=== PATIENT | male | born 1935 | race Caucasian/White ===

== ENCOUNTER 2022-03-09 10:13 | Inpatient (IN) | payer MEDICARE ==
[~2022-03-09 10:13] MED LIST: Rocuronium Bromide 10 MG/ML (10ML VIAL) ONE; Succinylcholine 200 MG/10 ml SYRINGE FS ONE
[2022-03-09] MEDS ORDERED: Lidocaine 4% Topical Sol 50 ML BOT ONE (10:50)
[2022-03-09 10:52] LABS: #Basophils 0.1 10x3/uL (0.0-0.2); #Eosinphils 0.9 10x3/uL (0.0-0.5); #Monocytes 0.8 10x3/uL (0.0-1.1); #Neutrophils 7.1 10x3/uL (1.5-8.4); %Basophils 0.8 % (0.0-2.0); %Eosinophils 7.6 % (0.0-6.0); %Lymphocytes 23.8 % (18.0-47.0); %Monocytes 6.9 % (0.0-10.0); %Neutrophils 60.7 % (40.0-75.0); Mean Corpuscular HGB CONC 32.5 g/dL (32.0-36.0); Mean Corpuscular Hemoglobin 32.8 pg (27.0-33.0); Mean Corpuscular Volume 100.9 fl (81.2-95.1); Mean Platelet Volume 11.5 fl (7.4-10.4); Platelet Count 324 10x3/uL (150-450); RBC Distribution Width 11.6 % (11.5-14.5); Red Blood Cell (RBC) Count 4.58 10x6/uL (4.32-5.72); White Blood Cell (WBC) Count 11.6 10x3/uL (3.5-10.5)
[2022-03-09] MEDS ORDERED: Diltiazem 125 MG/25 ML ONE (10:59)
[2022-03-09 11:10] LABS: ALT (SGPT) 7 U/L (8-55); AST (SGOT) 12 U/L (5-34); Albumin 3.8 g/dL (3.4-4.8); Alkaline Phosphatase 97 U/L (40-110); Anion Gap 12 mmol/L (10-20); BUN (Urea Nitrogen) 13 mg/dL (8.4-25.7); Bilirubin, Total 2.6 mg/dL (0.2-1.2); Calc. Creatinine Clearance 0 mL/min (70-130); Calcium 9.2 mg/dL (7.8-10.44); Carbon Dioxide 28 mmol/L (23-31); Chloride 102 mmol/L (98-107); Estimated GFR 81; Globulin 3.1 g/dL (2.4-3.5); Glucose 140 mg/dL (83-110); Potassium 3.8 mmol/L (3.5-5.1); Protein, Total 6.9 g/dL (5.8-8.1); Sodium 138 mmol/L (136-145)
[2022-03-09] MEDS ORDERED: cefTRIAXone\\ROCEPHIN 1 GM VIAL ONE (11:35)
[2022-03-09] MEDS ORDERED: cefTRIAXone\\ROCEPHIN 2 GM VIAL ONE (11:36)
[2022-03-09] MEDS ORDERED: Azithromycin 500 MG VIAL ONE (12:24)
[2022-03-09 12:52] LABS: SARS-CoV-2 NAA Rapid Test Not Detected (NotDetected)
[2022-03-09 13:07] VITALS: BMI 30.8
[2022-03-09 13:47] LABS: Magnesium 1.9 mg/dL (1.6-2.6); Phosphorus 2.6 mg/dL (2.3-4.7)
[2022-03-09 14:06] LABS: Troponin I Less than 0.010 ng/mL (< 0.028)
[2022-03-09 14:21] LABS: Free T4 (Free Thyroxine) 1.11 ng/dL (0.70-1.48); Thyroid Stimulating Hormone 2.5396 uIU/mL (0.35-4.94)
[2022-03-09] MEDS: Doxycycline 100 MG in Sodium Chloride 0.9% 100 ML IVPB SCH (14:40)
[2022-03-09] MEDS: metroNIDAZOLE 500 MG in Premix Bag 1 BAG IVPB SCH ×2 (14:40→22:06)
[2022-03-09] MEDS ORDERED: Fentanyl BOLUS 250 ML IVPB PRN (16:00)
[2022-03-09] MEDS ORDERED: Propofol BOLUS 1,000 MG/100 ML VIAL IV PRN (16:00)
[2022-03-09] MEDS ORDERED: fentaNYL Citrate-0.9 % NaCl/PF 100 ML IVPB SCH (16:00)
[2022-03-09] MEDS ORDERED: Propofol 1,000 MG/100 ML VIAL IV ONE (16:00)
[2022-03-09] MEDS ORDERED: Morphine 2 MG/ML VIAL SLOW IVP PRN (16:00)
[2022-03-09] MEDS ORDERED: Ventilator Sedation Protocol 1 EACH FS SCH (16:00)
[2022-03-09] MEDS ORDERED: Propofol 1,000 MG/100 ML VIAL IV PRN (16:00)
[2022-03-09] MEDS ORDERED: Lorazepam 2 MG/ML VIAL SLOW IVP PRN (16:00)
[2022-03-09] MEDS ORDERED: DISCONTINUE PREVIOUS NARCOTIC PAIN MEDICATIONS AND BENZODIAZEPINES FS SCH (16:00)
[2022-03-09] MEDS ORDERED: Rocuronium Bromide 10 MG/ML (10ML VIAL) IVP SCH (16:30)
[2022-03-09 16:57] LABS: Troponin I Less than 0.010 ng/mL (< 0.028)
[2022-03-09] MEDS: Cefepime 2 GM in Sodium Chloride 0.9% 100 ML IVPB SCH (17:13)
[2022-03-09 17:20] LABS: Bilirubin Neg (Negative); Blood, Urine Negative (Negative); Clarity Clear (Clear); Glucose, Urine (Dipstick) Normal (Negative); Ketone, Urine Negative (Negative); Leukocyte Negative (Negative); Nitrite Negative (Negative); Protein, Urine (Dipstick) Negative (Neg-Trace); Specific Gravity, Urine 1.015 (1.005-1.030); Urobilinogen Normal mg/dL (Less than 2)
[2022-03-09 17:21] LABS: Urine Culture Reflex No No
[2022-03-09 17:29] LABS: Bacteria/HPF None Seen HPF (None Seen); RBC/HPF 0-3 HPF (0-3); Squamous Epithelial 0-3 HPF (0-3); WBC/HPF 0-3 HPF (0-3)
[2022-03-09] MEDS ORDERED: hydrALAZINE 20 MG/ML VIAL SLOW IVP PRN (17:33)
[2022-03-09 19:56] LABS: Anion Gap 17 mmol/L (10-20); BUN (Urea Nitrogen) 13 mg/dL (8.4-25.7); Calc. Creatinine Clearance 99 mL/min (70-130); Carbon Dioxide 24 mmol/L (23-31); Chloride 104 mmol/L (98-107); Estimated GFR 85; Glucose 118 mg/dL (83-110); Potassium 3.8 mmol/L (3.5-5.1); Sodium 141 mmol/L (136-145)
[2022-03-09] MEDS: Diltiazem 125 MG, Admixture Fee 1 EACH in Sodium Chloride 0.9% 100 ML IVPB SCH (20:27)
[2022-03-09] MEDS: Famotidine 20 MG TAB PO SCH (22:06)
[2022-03-10] MEDS: Doxycycline 100 MG in Sodium Chloride 0.9% 100 ML IVPB SCH ×2 (01:43→14:46)
[2022-03-10] MEDS ORDERED: Sodium Chloride 0.9% 500 ML IVPB SCH (03:00)
[2022-03-10] MEDS ORDERED: Digoxin 0.5 MG/2 ML AMP SLOW IVP SCH (03:00)
[2022-03-10] MEDS: Cefepime 2 GM in Sodium Chloride 0.9% 100 ML IVPB SCH ×2 (03:49→16:02)
[2022-03-10 05:01] LABS: ALT (SGPT) 6 U/L (8-55); AST (SGOT) 10 U/L (5-34); Albumin 2.8 g/dL (3.4-4.8); Alkaline Phosphatase 63 U/L (40-110); Anion Gap 14 mmol/L (10-20); BUN (Urea Nitrogen) 18 mg/dL (8.4-25.7); Calc. Creatinine Clearance 80 mL/min (70-130); Calcium 8.4 mg/dL (7.8-10.44); Carbon Dioxide 20 mmol/L (23-31); Chloride 108 mmol/L (98-107); Estimated GFR 73; Globulin 2.5 g/dL (2.4-3.5); Glucose 138 mg/dL (83-110); Potassium 4.2 mmol/L (3.5-5.1); Protein, Total 5.3 g/dL (5.8-8.1); Sodium 138 mmol/L (136-145)
[2022-03-10] MEDS: metroNIDAZOLE 500 MG in Premix Bag 1 BAG IVPB SCH ×3 (05:49→20:38)
[2022-03-10 05:56] LABS: Hemoglobin 11.9 g/dL (13.5-17.5); Mean Corpuscular HGB CONC 33.1 g/dL (32.0-36.0); Mean Corpuscular Hemoglobin 32.4 pg (27.0-33.0); Mean Corpuscular Volume 97.8 fl (81.2-95.1); Platelet Count 190 10x3/uL (150-450); RBC Distribution Width 11.9 % (11.5-14.5); Red Blood Cell (RBC) Count 3.67 10x6/uL (4.32-5.72); White Blood Cell (WBC) Count 30.3 10x3/uL (3.5-10.5)
[2022-03-10 06:32] LABS: CO2 Tension 37.8 mmHg (35.0-45.0); pH, Arterial 7.44 (7.35-7.45)
[2022-03-10 06:33] LABS: Actual Bicarbonate (HCO3a) 25.3 mEq/L (22-28); Base Excess (BEa) 1.3 mEq/L (-2.0 to +3.0); Carboxyhemoglobin (COHb) 0.2 gm% (0.0-3.0); Hemoglobin (Hb) 12.5 g/dL (14.0-18.0); O2 Tension (PaO2), arterial 90.4 mmHg (> 60.0)
[2022-03-10 06:34] LABS: Potassium - ABG Lab 4.1 mmol/L (3.70-5.30)
[2022-03-10 06:35] LABS: Calcium, Ionized (arterial) 1.14 mmol/L (1.12-1.30)
[2022-03-10 06:36] LABS: Puncture Site RRA
[2022-03-10 06:42] LABS: MDiff Complete? YES
[2022-03-10 06:44] LABS: Band 9 % (5-11); Lymphocytes 1 % (21-51); Monocytes 4 % (0-10); Neutrophil 86 % (42-75)
[2022-03-10 06:46] LABS: Diff Comment (RBC Morph SCRN) NORMAL; Platelet Morphology Comment Appears Decreased
[2022-03-10] MEDS ORDERED: DC Sedation Protocol FS ONE (07:34)
[2022-03-10] MEDS: Famotidine 20 MG TAB PO SCH ×2 (08:03→20:38)
[2022-03-10] MEDS ORDERED: Rivaroxaban 2.5 MG TAB PO SCH (11:00)
[2022-03-10] MEDS: Rivaroxaban 2.5 MG TAB PO SCH (20:38)
[2022-03-11] MEDS: Doxycycline 100 MG in Sodium Chloride 0.9% 100 ML IVPB SCH ×2 (04:30→13:52)
[2022-03-11] MEDS: Cefepime 2 GM in Sodium Chloride 0.9% 100 ML IVPB SCH ×2 (04:31→16:17)
[2022-03-11 05:00] LABS: Anion Gap 15 mmol/L (10-20); BUN (Urea Nitrogen) 19 mg/dL (8.4-25.7); Calc. Creatinine Clearance 101 mL/min (70-130); Calcium 8.6 mg/dL (7.8-10.44); Carbon Dioxide 22 mmol/L (23-31); Chloride 107 mmol/L (98-107); Estimated GFR 86; Glucose 95 mg/dL (83-110); Potassium 3.8 mmol/L (3.5-5.1); Sodium 140 mmol/L (136-145)
[2022-03-11] MEDS: metroNIDAZOLE 500 MG in Premix Bag 1 BAG IVPB SCH ×3 (06:10→21:55)
[2022-03-11] MEDS: Famotidine 20 MG TAB PO SCH ×3 (08:12→22:29)
[2022-03-11] MEDS: Rivaroxaban 2.5 MG TAB PO SCH (08:12)
[2022-03-11] MEDS: Diltiazem 125 MG, Admixture Fee 1 EACH in Sodium Chloride 0.9% 100 ML IVPB SCH ×2 (12:58→21:54)
[2022-03-11] MEDS ORDERED: Midazolam HCl 5 mg/5 ml Vial SLOW IVP SCH (19:00)
[2022-03-11] MEDS: Apixaban 5 MG TAB PO SCH ×2 (21:54→22:17)
[2022-03-11] MEDS: Atorvastatin Calcium 20 MG TAB PO SCH ×2 (21:54→22:30)
[2022-03-11] MEDS: Nystatin Cream 15 GM TUBE TOP SCH (21:55)
[2022-03-12] MEDS: Doxycycline 100 MG in Sodium Chloride 0.9% 100 ML IVPB SCH (01:57)
[2022-03-12] MEDS: Cefepime 2 GM in Sodium Chloride 0.9% 100 ML IVPB SCH ×2 (03:55→16:29)
[2022-03-12 04:47] LABS: Anion Gap 14 mmol/L (10-20); BUN (Urea Nitrogen) 18 mg/dL (8.4-25.7); Calc. Creatinine Clearance 105 mL/min (70-130); Calcium 8.6 mg/dL (7.8-10.44); Carbon Dioxide 23 mmol/L (23-31); Chloride 109 mmol/L (98-107); Estimated GFR 87; Glucose 92 mg/dL (83-110); Potassium 3.5 mmol/L (3.5-5.1); Sodium 142 mmol/L (136-145)
[2022-03-12] MEDS: metroNIDAZOLE 500 MG in Premix Bag 1 BAG IVPB SCH ×3 (06:41→22:16)
[2022-03-12] MEDS: Dextrose 5 %-0.45 % NaCl 1,000 ML IV SCH ×2 (08:45→20:57)
[2022-03-12] MEDS: Nystatin Cream 15 GM TUBE TOP SCH ×2 (08:46→21:21)
[2022-03-12] MEDS: Pantoprazole 40 MG VIAL IVP SCH (08:58)
[2022-03-12] MEDS: Diltiazem 125 MG, Admixture Fee 1 EACH in Sodium Chloride 0.9% 100 ML IVPB SCH ×2 (09:07→21:20)
[2022-03-12] MEDS ORDERED: Potassium Chloride 10 MEQ in Premix Bag 1 BAG IVPB SCH (11:00)
[2022-03-12] MEDS: Apixaban 5 MG TAB PO SCH (11:50)
[2022-03-12] MEDS: Tamsulosin HCl 0.4 MG CAP PO SCH (11:50)
[2022-03-12 12:29] LABS: Magnesium 1.7 mg/dL (1.6-2.6)
[2022-03-12] MEDS ORDERED: Magnesium 2 GM/50 ML(in water) 2 GM in Premix Bag 1 BAG IVPB SCH (12:45)
[2022-03-12] MEDS: Enoxaparin Sodium 120 MG/0.8 ML SYRINGE SC SCH (20:57)
[2022-03-12] MEDS: Atorvastatin Calcium 20 MG TAB PO SCH (21:20)
[2022-03-13] MEDS: Cefepime 2 GM in Sodium Chloride 0.9% 100 ML IVPB SCH ×2 (03:58→16:14)
[2022-03-13] MEDS ORDERED: Lorazepam 2 MG/ML VIAL SLOW IVP SCH (04:00)
[2022-03-13 05:17] LABS: Anion Gap 11 mmol/L (10-20); BUN (Urea Nitrogen) 16 mg/dL (8.4-25.7); Calc. Creatinine Clearance 108 mL/min (70-130); Calcium 8.1 mg/dL (7.8-10.44); Carbon Dioxide 24 mmol/L (23-31); Chloride 108 mmol/L (98-107); Estimated GFR 88; Glucose 230 mg/dL (83-110); Potassium 3.1 mmol/L (3.5-5.1); Sodium 140 mmol/L (136-145)
[2022-03-13] MEDS: Potassium Chloride 20 MEQ in Premix Bag 1 BAG IVPB SCH ×2 (05:47→07:59)
[2022-03-13] MEDS: metroNIDAZOLE 500 MG in Premix Bag 1 BAG IVPB SCH ×3 (05:50→21:34)
[2022-03-13] MEDS: Diltiazem 125 MG, Admixture Fee 1 EACH in Sodium Chloride 0.9% 100 ML IVPB SCH ×2 (08:00→18:20)
[2022-03-13] MEDS: Nystatin Cream 15 GM TUBE TOP SCH ×3 (08:07→22:48)
[2022-03-13] MEDS: Tamsulosin HCl 0.4 MG CAP PO SCH (08:07)
[2022-03-13] MEDS ORDERED: Pantoprazole 40 MG VIAL ONE (08:13)
[2022-03-13] MEDS: Enoxaparin Sodium 120 MG/0.8 ML SYRINGE SC SCH ×2 (08:13→20:17)
[2022-03-13] MEDS: Pantoprazole 40 MG VIAL IVP SCH (08:13)
[2022-03-13] MEDS ORDERED: HumaLOG 300 UNITS/3 ML VIAL SC PRN (08:16)
[2022-03-13] MEDS ORDERED: Dextrose 5% in Water 1,000 ML IV PRN (08:16)
[2022-03-13] MEDS ORDERED: Dextrose 50% Abboject 50 ML SYRINGE SLOW IVP PRN (08:16)
[2022-03-13 12:40] LABS: Potassium 3.5 mmol/L (3.5-5.1)
[2022-03-13] MEDS: Dextrose 5 %-0.45 % NaCl 1,000 ML IV SCH (13:28)
[2022-03-13] MEDS ORDERED: Midazolam HCl 2 mg/2 ml Vial SLOW IVP PRN (15:40)
[2022-03-13] MEDS: Atorvastatin Calcium 20 MG TAB PO SCH (20:17)
[2022-03-14] MEDS: Cefepime 2 GM in Sodium Chloride 0.9% 100 ML IVPB SCH ×2 (03:41→16:11)
[2022-03-14] MEDS: Dextrose 5 %-0.45 % NaCl 1,000 ML IV SCH ×2 (03:51→16:50)
[2022-03-14 03:54] LABS: #Basophils 0.1 10x3/uL (0.0-0.2); #Eosinphils 0.8 10x3/uL (0.0-0.5); #Neutrophils 8.5 10x3/uL (1.5-8.4); %Basophils 0.6 % (0.0-2.0); %Eosinophils 6.2 % (0.0-6.0); %Lymphocytes 15.2 % (18.0-47.0); %Neutrophils 69.4 % (40.0-75.0); Hemoglobin 11.4 g/dL (13.5-17.5); Mean Corpuscular HGB CONC 33.2 g/dL (32.0-36.0); Mean Corpuscular Volume 99.4 fl (81.2-95.1); Mean Platelet Volume 11.7 fl (7.4-10.4); Platelet Count 252 10x3/uL (150-450); RBC Distribution Width 11.9 % (11.5-14.5); Red Blood Cell (RBC) Count 3.45 10x6/uL (4.32-5.72); White Blood Cell (WBC) Count 12.3 10x3/uL (3.5-10.5)
[2022-03-14 04:12] LABS: Anion Gap 9 mmol/L (10-20); BUN (Urea Nitrogen) 12 mg/dL (8.4-25.7); Calc. Creatinine Clearance 125 mL/min (70-130); Calcium 8.3 mg/dL (7.8-10.44); Carbon Dioxide 25 mmol/L (23-31); Chloride 108 mmol/L (98-107); Estimated GFR 92; Glucose 123 mg/dL (83-110); Magnesium 1.8 mg/dL (1.6-2.6); Potassium 3.2 mmol/L (3.5-5.1); Sodium 139 mmol/L (136-145)
[2022-03-14] MEDS: metroNIDAZOLE 500 MG in Premix Bag 1 BAG IVPB SCH ×3 (05:30→21:07)
[2022-03-14] MEDS ORDERED: Potassium Chloride 20 MEQ in Premix Bag 1 BAG IVPB ONE (05:30)
[2022-03-14] MEDS: Pantoprazole 40 MG VIAL IVP SCH (08:28)
[2022-03-14] MEDS: Nystatin Cream 15 GM TUBE TOP SCH ×2 (08:39→21:31)
[2022-03-14] MEDS: Tamsulosin HCl 0.4 MG CAP PO SCH (09:38)
[2022-03-14] MEDS: Diltiazem 125 MG, Admixture Fee 1 EACH in Sodium Chloride 0.9% 100 ML IVPB SCH (12:11)
[2022-03-14] MEDS ORDERED: PROPOFOL 20 ML ONE (14:59)
[2022-03-14] MEDS ORDERED: Ketamine 50 MG/ML (10ML VIAL) ONE (15:10)
[2022-03-14] MEDS: Atorvastatin Calcium 20 MG TAB PO SCH (21:06)
[2022-03-15 04:03] LABS: Anion Gap 10 mmol/L (10-20); BUN (Urea Nitrogen) 9 mg/dL (8.4-25.7); Calc. Creatinine Clearance 123 mL/min (70-130); Calcium 8.2 mg/dL (7.8-10.44); Carbon Dioxide 26 mmol/L (23-31); Chloride 108 mmol/L (98-107); Estimated GFR 91; Glucose 130 mg/dL (83-110); Potassium 3.3 mmol/L (3.5-5.1); Sodium 141 mmol/L (136-145)
[2022-03-15] MEDS: Cefepime 2 GM in Sodium Chloride 0.9% 100 ML IVPB SCH ×2 (04:24→15:01)
[2022-03-15] MEDS ORDERED: Electrolyte Replacement Protocol FS PRN (04:47)
[2022-03-15] MEDS ORDERED: Magnesium 2 GM/50 ML(in water) 2 GM in Premix Bag 1 BAG IVPB SCH (05:00)
[2022-03-15] MEDS: Dextrose 5 %-0.45 % NaCl 1,000 ML IV SCH (05:15)
[2022-03-15] MEDS: Potassium Chloride 20 MEQ in Premix Bag 1 BAG IVPB SCH ×2 (05:15→08:26)
[2022-03-15] MEDS: metroNIDAZOLE 500 MG in Premix Bag 1 BAG IVPB SCH ×3 (06:12→21:34)
[2022-03-15] MEDS: Nystatin Cream 15 GM TUBE TOP SCH ×2 (08:27→20:35)
[2022-03-15] MEDS: Tamsulosin HCl 0.4 MG CAP PO SCH (08:27)
[2022-03-15] MEDS: Enoxaparin Sodium 120 MG/0.8 ML SYRINGE SC SCH (08:27)
[2022-03-15] MEDS: Pantoprazole 40 MG VIAL IVP SCH (08:27)
[2022-03-15] MEDS: Diltiazem 125 MG, Admixture Fee 1 EACH in Sodium Chloride 0.9% 100 ML IVPB SCH (10:38)
[2022-03-15] MEDS: Scopolamine 1.5 mg/72 hour Patch TD SCH (12:05)
[2022-03-15] MEDS ORDERED: Metoprolol Tartrate 50 MG TAB PO SCH (13:00)
[2022-03-15] MEDS: Metoprolol Tartrate 50 MG TAB PO SCH (20:35)
[2022-03-15] MEDS: Apixaban 5 MG TAB PO SCH (20:35)
[2022-03-15] MEDS: Atorvastatin Calcium 20 MG TAB PER TUBE SCH (20:35)
[2022-03-16] MEDS: Cefepime 2 GM in Sodium Chloride 0.9% 100 ML IVPB SCH ×2 (04:27→16:56)
[2022-03-16 04:31] LABS: Anion Gap 12 mmol/L (10-20); BUN (Urea Nitrogen) 11 mg/dL (8.4-25.7); Calc. Creatinine Clearance 114 mL/min (70-130); Calcium 8.4 mg/dL (7.8-10.44); Carbon Dioxide 26 mmol/L (23-31); Chloride 108 mmol/L (98-107); Estimated GFR 89; Glucose 105 mg/dL (83-110); Potassium 3.6 mmol/L (3.5-5.1); Sodium 142 mmol/L (136-145)
[2022-03-16] MEDS: Apixaban 5 MG TAB PO SCH ×2 (08:18→20:20)
[2022-03-16] MEDS: Metoprolol Tartrate 50 MG TAB PO SCH ×2 (08:18→20:20)
[2022-03-16] MEDS: metroNIDAZOLE 500 MG in Premix Bag 1 BAG IVPB SCH ×3 (08:18→22:09)
[2022-03-16] MEDS: Tamsulosin HCl 0.4 MG CAP PO SCH (08:18)
[2022-03-16] MEDS: Nystatin Cream 15 GM TUBE TOP SCH ×2 (08:20→20:20)
[2022-03-16] MEDS: Lansoprazole 3 MG/ML ORAL SUSPENSION PER TUBE SCH (08:20)
[2022-03-16] MEDS ORDERED: Potassium Chloride 20 MEQ TAB PO SCH (09:45)
[2022-03-16] MEDS: Atorvastatin Calcium 20 MG TAB PER TUBE SCH (20:20)
[2022-03-17 04:17] LABS: Anion Gap 10 mmol/L (10-20); BUN (Urea Nitrogen) 14 mg/dL (8.4-25.7); Calc. Creatinine Clearance 121 mL/min (70-130); Calcium 8.3 mg/dL (7.8-10.44); Carbon Dioxide 25 mmol/L (23-31); Chloride 109 mmol/L (98-107); Estimated GFR 91; Glucose 109 mg/dL (83-110); Potassium 3.9 mmol/L (3.5-5.1); Sodium 140 mmol/L (136-145)
[2022-03-17] MEDS: Metoprolol Tartrate 50 MG TAB PO SCH ×2 (08:06→20:21)
[2022-03-17] MEDS: Tamsulosin HCl 0.4 MG CAP PO SCH (08:07)
[2022-03-17] MEDS: Apixaban 5 MG TAB PO SCH ×2 (08:07→20:21)
[2022-03-17] MEDS: Nystatin Cream 15 GM TUBE TOP SCH ×2 (08:08→20:21)
[2022-03-17] MEDS: Lansoprazole 3 MG/ML ORAL SUSPENSION PER TUBE SCH (08:08)
[2022-03-17] MEDS ORDERED: Digoxin 0.5 MG/2 ML AMP SLOW IVP SCH (10:00)
[2022-03-17 10:19] LABS: Hemoglobin 11.7 g/dL (13.5-17.5); Mean Corpuscular HGB CONC 31.5 g/dL (32.0-36.0); Mean Corpuscular Hemoglobin 32.9 pg (27.0-33.0); Mean Corpuscular Volume 104.2 fl (81.2-95.1); Mean Platelet Volume 11.9 fl (7.4-10.4); Platelet Count 306 10x3/uL (150-450); RBC Distribution Width 12.9 % (11.5-14.5); Red Blood Cell (RBC) Count 3.56 10x6/uL (4.32-5.72); White Blood Cell (WBC) Count 16.7 10x3/uL (3.5-10.5)
[2022-03-17] MEDS ORDERED: Digoxin 0.5 MG/2 ML AMP ONE (10:20)
[2022-03-17 14:45] LABS: Magnesium 1.8 mg/dL (1.6-2.6)
[2022-03-17] MEDS ORDERED: Magnesium 2 GM/50 ML(in water) 2 GM in Premix Bag 1 BAG IVPB SCH (16:00)
[2022-03-17 16:30] LABS: Bilirubin Neg (Negative); Blood, Urine 250 (Negative); Clarity Bloody (Clear); Glucose, Urine (Dipstick) Normal (Negative); Ketone, Urine 15 mg/dL (Negative); Leukocyte 100 (Negative); Nitrite Positive (Negative); Protein, Urine (Dipstick) 100 mg/dl (Neg-Trace)
[2022-03-17 16:37] LABS: RBC/HPF Greater than 50 HPF (0-3)
[2022-03-17 16:38] LABS: Bacteria/HPF 1+ HPF (None Seen); Calcium Oxalate Crystals Rare HPF (None Seen); Squamous Epithelial 0-3 HPF (0-3)
[2022-03-17 16:39] LABS: Other Microscopic Description SEE COMMENTS; Yeast-Budding Rare HPF (None Seen); Yeast-Hyphae Rare HPF (None Seen)
[2022-03-17 16:40] LABS: Urine Culture Reflex Yes Yes
[2022-03-17] MEDS: Atorvastatin Calcium 20 MG TAB PER TUBE SCH (20:21)
[2022-03-18 04:23] LABS: Hemoglobin 11.2 g/dL (13.5-17.5); Mean Corpuscular HGB CONC 31.7 g/dL (32.0-36.0); Mean Corpuscular Hemoglobin 32.5 pg (27.0-33.0); Mean Corpuscular Volume 102.3 fl (81.2-95.1); Mean Platelet Volume 11.7 fl (7.4-10.4); Platelet Count 285 10x3/uL (150-450); RBC Distribution Width 13.3 % (11.5-14.5); Red Blood Cell (RBC) Count 3.45 10x6/uL (4.32-5.72); White Blood Cell (WBC) Count 15.8 10x3/uL (3.5-10.5)
[2022-03-18 05:28] LABS: Phosphorus 2.2 mg/dL (2.3-4.7)
[2022-03-18 05:30] LABS: Anion Gap 14 mmol/L (10-20); BUN (Urea Nitrogen) 20 mg/dL (8.4-25.7); Calc. Creatinine Clearance 120 mL/min (70-130); Calcium 8.5 mg/dL (7.8-10.44); Carbon Dioxide 27 mmol/L (23-31); Chloride 106 mmol/L (98-107); Estimated GFR 90; Glucose 106 mg/dL (83-110); Magnesium 2.1 mg/dL (1.6-2.6); Potassium 3.9 mmol/L (3.5-5.1); Sodium 143 mmol/L (136-145)
[2022-03-18] MEDS: Apixaban 5 MG TAB PO SCH ×2 (09:38→20:22)
[2022-03-18] MEDS: Tamsulosin HCl 0.4 MG CAP PO SCH (09:38)
[2022-03-18] MEDS: Lansoprazole 3 MG/ML ORAL SUSPENSION PER TUBE SCH (09:38)
[2022-03-18] MEDS: Nystatin Cream 15 GM TUBE TOP SCH ×2 (09:38→20:46)
[2022-03-18] MEDS: Metoprolol Tartrate 50 MG TAB PO SCH ×2 (09:38→20:22)
[2022-03-18] MEDS ORDERED: Cefepime 1 GM in Sodium Chloride 0.9% 100 ML IVPB SCH (10:00)
[2022-03-18] MEDS: Scopolamine 1.5 mg/72 hour Patch TD SCH (11:40)
[2022-03-18] MEDS ORDERED: Digoxin 0.25 MG TAB PER TUBE SCH ×2 (13:39→14:00)
[2022-03-18] MEDS: Atorvastatin Calcium 20 MG TAB PER TUBE SCH (20:22)
[2022-03-18] MEDS: Cefepime 1 GM in Sodium Chloride 0.9% 100 ML IVPB SCH (20:22)
[2022-03-19 04:29] LABS: Hemoglobin 10.8 g/dL (13.5-17.5); Mean Corpuscular HGB CONC 31.5 g/dL (32.0-36.0); Mean Corpuscular Hemoglobin 33.1 pg (27.0-33.0); Mean Corpuscular Volume 105.2 fl (81.2-95.1); Platelet Count 282 10x3/uL (150-450); RBC Distribution Width 13.2 % (11.5-14.5); Red Blood Cell (RBC) Count 3.26 10x6/uL (4.32-5.72); White Blood Cell (WBC) Count 14.3 10x3/uL (3.5-10.5)
[2022-03-19 04:30] LABS: Anion Gap 10 mmol/L (10-20); BUN (Urea Nitrogen) 22 mg/dL (8.4-25.7); Calc. Creatinine Clearance 127 mL/min (70-130); Calcium 8.4 mg/dL (7.8-10.44); Carbon Dioxide 31 mmol/L (23-31); Chloride 105 mmol/L (98-107); Estimated GFR 92; Glucose 107 mg/dL (83-110); Potassium 4.1 mmol/L (3.5-5.1); Sodium 142 mmol/L (136-145)
[2022-03-19] MEDS ORDERED: Magnesium 2 GM/50 ML(in water) 2 GM in Premix Bag 1 BAG IVPB SCH (05:00)
[2022-03-19] MEDS ORDERED: Fluconazole 100 MG TAB PO SCH (08:30)
[2022-03-19] MEDS: Metoprolol Tartrate 50 MG TAB PO SCH ×2 (09:27→20:38)
[2022-03-19] MEDS: Tamsulosin HCl 0.4 MG CAP PO SCH (09:27)
[2022-03-19] MEDS: Apixaban 5 MG TAB PO SCH ×2 (09:27→20:38)
[2022-03-19] MEDS: Lansoprazole 3 MG/ML ORAL SUSPENSION PER TUBE SCH (09:27)
[2022-03-19] MEDS: Nystatin Cream 15 GM TUBE TOP SCH ×2 (09:28→20:39)
[2022-03-19] MEDS: Cefepime 1 GM in Sodium Chloride 0.9% 100 ML IVPB SCH ×2 (09:29→20:38)
[2022-03-19] MEDS: Digoxin 0.25 MG TAB PER TUBE SCH (09:30)
[2022-03-19] MEDS ORDERED: VANCOMYCIN 2 GRAM/400 ML BAG 2 GM in Premix Bag 1 BAG IVPB SCH (11:30)
[2022-03-19] MEDS: Atorvastatin Calcium 20 MG TAB PER TUBE SCH (20:38)
[2022-03-19] MEDS ORDERED: Vancomycin 1.5 GRAM/300 ML BAG 1.5 GM in Premix Bag 1 BAG IVPB SCH (23:30)
[2022-03-20] MEDS ORDERED: Linezolid 600 MG in Syringe 0 ML IVPB SCH (09:00)
[2022-03-20] MEDS: Metoprolol Tartrate 50 MG TAB PO SCH ×3 (09:00→21:42)
[2022-03-20] MEDS: Lansoprazole 3 MG/ML ORAL SUSPENSION PER TUBE SCH (09:00)
[2022-03-20] MEDS: Tamsulosin HCl 0.4 MG CAP PO SCH (09:00)
[2022-03-20] MEDS: Digoxin 0.25 MG TAB PER TUBE SCH (09:01)
[2022-03-20] MEDS: Cefepime 1 GM in Sodium Chloride 0.9% 100 ML IVPB SCH (09:01)
[2022-03-20] MEDS: Apixaban 5 MG TAB PO SCH ×2 (09:01→21:42)
[2022-03-20] MEDS: Linezolid 600 MG in Premix Bag 1 BAG IVPB SCH ×2 (11:00→21:42)
[2022-03-20] MEDS: Nystatin Cream 15 GM TUBE TOP SCH ×2 (16:07→21:42)
[2022-03-20] MEDS: Atorvastatin Calcium 20 MG TAB PER TUBE SCH (21:42)
[2022-03-21 06:00] LABS: #Basophils 0.1 10x3/uL (0.0-0.2); #Eosinphils 0.5 10x3/uL (0.0-0.5); %Basophils 0.3 % (0.0-2.0); %Eosinophils 3.2 % (0.0-6.0); %Lymphocytes 9.1 % (18.0-47.0); %Monocytes 6.9 % (0.0-10.0); %Neutrophils 79.6 % (40.0-75.0); Hemoglobin 10.8 g/dL (13.5-17.5); Mean Corpuscular Hemoglobin 32.8 pg (27.0-33.0); Mean Corpuscular Volume 105.8 fl (81.2-95.1); Mean Platelet Volume 12.1 fl (7.4-10.4); Platelet Count 262 10x3/uL (150-450); RBC Distribution Width 13.4 % (11.5-14.5); Red Blood Cell (RBC) Count 3.29 10x6/uL (4.32-5.72)
[2022-03-21 06:21] LABS: Anion Gap 11 mmol/L (10-20); BUN (Urea Nitrogen) 19 mg/dL (8.4-25.7); Calc. Creatinine Clearance 127 mL/min (70-130); Calcium 8.5 mg/dL (7.8-10.44); Carbon Dioxide 31 mmol/L (23-31); Chloride 100 mmol/L (98-107); Estimated GFR 92; Glucose 91 mg/dL (83-110); Potassium 4.3 mmol/L (3.5-5.1); Sodium 138 mmol/L (136-145)
[2022-03-21 08:03] LABS: Macrocytosis SLIGHT = 6-15 cells (100X) (0-5/hpf)
[2022-03-21 08:04] LABS: Large Platelets SLIGHT
[2022-03-21 08:05] LABS: Platelet Morphology Comment Appears Adequate
[2022-03-21] MEDS: Apixaban 5 MG TAB PO SCH ×2 (10:20→21:19)
[2022-03-21] MEDS: Metoprolol Tartrate 50 MG TAB PO SCH ×3 (10:25→21:19)
[2022-03-21] MEDS: Tamsulosin HCl 0.4 MG CAP PO SCH (10:25)
[2022-03-21] MEDS: Lansoprazole 3 MG/ML ORAL SUSPENSION PER TUBE SCH (10:30)
[2022-03-21] MEDS: Digoxin 0.25 MG TAB PER TUBE SCH (10:32)
[2022-03-21] MEDS ORDERED: Nystatin Powder 15 GM BOT TOP PRN (11:21)
[2022-03-21] MEDS: Linezolid 600 MG in Premix Bag 1 BAG IVPB SCH ×2 (11:34→21:18)
[2022-03-21] MEDS: Scopolamine 1.5 mg/72 hour Patch TD SCH (11:35)
[2022-03-21] MEDS: Nystatin Cream 15 GM TUBE TOP SCH (11:36)
[2022-03-21] MEDS ORDERED: diphenhydrAMINE 12.5 MG/5 ML UDCUP PO PRN (12:20)
[2022-03-21] MEDS ORDERED: Magnesium 2 GM/50 ML(in water) 2 GM in Premix Bag 1 BAG IVPB SCH (13:00)
[2022-03-21] MEDS: Fluconazole 100 MG TAB PO SCH (16:06)
[2022-03-21] MEDS: Atorvastatin Calcium 20 MG TAB PER TUBE SCH (21:19)
[2022-03-22 04:06] LABS: Magnesium 2.2 mg/dL (1.6-2.6)
[2022-03-22] MEDS: Apixaban 5 MG TAB PO SCH ×2 (10:17→22:51)
[2022-03-22] MEDS: Linezolid 600 MG in Premix Bag 1 BAG IVPB SCH (10:17)
[2022-03-22] MEDS: Metoprolol Tartrate 50 MG TAB PO SCH ×3 (10:18→22:50)
[2022-03-22] MEDS: Tamsulosin HCl 0.4 MG CAP PO SCH (10:18)
[2022-03-22] MEDS: Fluconazole 100 MG TAB PO SCH (10:18)
[2022-03-22] MEDS: Lansoprazole 3 MG/ML ORAL SUSPENSION PER TUBE SCH (10:19)
[2022-03-22] MEDS: Digoxin 0.25 MG TAB PER TUBE SCH (10:20)
[2022-03-22 10:41] LABS: Anion Gap 12 mmol/L (10-20); BUN (Urea Nitrogen) 16 mg/dL (8.4-25.7); Calc. Creatinine Clearance 127 mL/min (70-130); Carbon Dioxide 31 mmol/L (23-31); Chloride 99 mmol/L (98-107); Potassium 4.4 mmol/L (3.5-5.1); Sodium 138 mmol/L (136-145)
[2022-03-22 10:42] LABS: Calcium 8.9 mg/dL (7.8-10.44); Estimated GFR 92; Glucose 117 mg/dL (83-110); Magnesium 2.1 mg/dL (1.6-2.6)
[2022-03-22] MEDS: Scopolamine 1.5 mg/72 hour Patch TD SCH (12:32)
[2022-03-22] MEDS: HYDROcodone/Acetaminophen 5/325 mg Tablet PO PRN (12:45)
[2022-03-22] MEDS ORDERED: Phenazopyridine HCl 95 MG TAB PO PRN (12:58)
[2022-03-22] MEDS ORDERED: Iopamidol 370 76% 100 ML VIAL ONE (14:14)
[2022-03-22 20:34] LABS: Bilirubin 1+ (Negative); Blood, Urine 25 (Negative); Clarity Clear (Clear); Glucose, Urine (Dipstick) Normal (Negative); Ketone, Urine Negative (Negative); Leukocyte 100 (Negative); Nitrite Positive (Negative); Protein, Urine (Dipstick) Negative (Neg-Trace)
[2022-03-22 20:50] LABS: Bacteria/HPF 1+ HPF (None Seen); WBC/HPF 21-50 HPF (0-3)
[2022-03-22] MEDS: Atorvastatin Calcium 20 MG TAB PER TUBE SCH (22:51)
[2022-03-22] MEDS: Linezolid 600 MG TAB PO SCH (22:51)
[2022-03-23] MEDS: Lansoprazole 3 MG/ML ORAL SUSPENSION PER TUBE SCH (10:15)
[2022-03-23] MEDS: Tamsulosin HCl 0.4 MG CAP PO SCH (10:16)
[2022-03-23] MEDS: Apixaban 5 MG TAB PO SCH (10:16)
[2022-03-23] MEDS: Linezolid 600 MG TAB PO SCH ×2 (10:16→21:03)
[2022-03-23] MEDS: Metoprolol Tartrate 50 MG TAB PO SCH ×3 (10:16→21:03)
[2022-03-23] MEDS: Saccharomyces boulardii 250 MG CAP PO SCH (10:17)
[2022-03-23] MEDS: Digoxin 0.25 MG TAB PER TUBE SCH (10:17)
[2022-03-23] MEDS: Atorvastatin Calcium 20 MG TAB PER TUBE SCH (21:03)
[2022-03-24 08:45] LABS: #Basophils 0.1 10x3/uL (0.0-0.2); #Eosinphils 0.4 10x3/uL (0.0-0.5); #Monocytes 1.1 10x3/uL (0.0-1.1); #Neutrophils 8.3 10x3/uL (1.5-8.4); %Basophils 0.5 % (0.0-2.0); %Eosinophils 3.6 % (0.0-6.0); %Lymphocytes 12.2 % (18.0-47.0); %Neutrophils 73.1 % (40.0-75.0); Hemoglobin 10.8 g/dL (13.5-17.5); Mean Corpuscular HGB CONC 30.9 g/dL (32.0-36.0); Mean Corpuscular Hemoglobin 32.9 pg (27.0-33.0); Mean Corpuscular Volume 106.4 fl (81.2-95.1); Mean Platelet Volume 12.8 fl (7.4-10.4); Platelet Count 281 10x3/uL (150-450); RBC Distribution Width 13.3 % (11.5-14.5); Red Blood Cell (RBC) Count 3.28 10x6/uL (4.32-5.72); White Blood Cell (WBC) Count 11.4 10x3/uL (3.5-10.5)
[2022-03-24 08:47] LABS: Anion Gap 10 mmol/L (10-20); BUN (Urea Nitrogen) 18 mg/dL (8.4-25.7); Calc. Creatinine Clearance 127 mL/min (70-130); Calcium 8.7 mg/dL (7.8-10.44); Carbon Dioxide 34 mmol/L (23-31); Chloride 100 mmol/L (98-107); Estimated GFR 92; Glucose 103 mg/dL (83-110); Potassium 4.6 mmol/L (3.5-5.1); Sodium 139 mmol/L (136-145)
[2022-03-24] MEDS: Digoxin 0.25 MG TAB PER TUBE SCH (09:31)
[2022-03-24] MEDS: Saccharomyces boulardii 250 MG CAP PO SCH (09:31)
[2022-03-24] MEDS: Metoprolol Tartrate 50 MG TAB PO SCH ×2 (09:31→17:30)
[2022-03-24] MEDS: Linezolid 600 MG TAB PO SCH (09:31)
[2022-03-24] MEDS: Tamsulosin HCl 0.4 MG CAP PO SCH (09:31)
[2022-03-24] MEDS: Lansoprazole 3 MG/ML ORAL SUSPENSION PER TUBE SCH (09:32)
[2022-03-24] MEDS ORDERED: Sodium Bicarbonate 2.5 MEQ/5 ML VIAL ONE (13:50)
[2022-03-24] MEDS ORDERED: Lidocaine 1% PF 5 ML VIAL ONE (13:50)
[2022-03-24 15:40] LABS: Body Fluid Source Thoracentesis Fluid; Clarity Cloudy/Turbid (Clear); Tube # EDTA
[2022-03-24 15:41] LABS: BF Color Red
[2022-03-24 16:18] LABS: BF Segmented Neutrophils 22 %; Cell Count Non Hematic 16 %; Eosinophils 10 %; Lymphocytes 51 %
[2022-03-24 22:46] LABS: Pleural Fluid, Amylase Less than 30 U/L (Not Available); Pleural Fluid, Glucose 95 mg/dL; Pleural Fluid, LDH 190 U/L (Not Available); Pleural Fluid, Protein 1.9 g/dL
[2022-03-25] MEDS: Linezolid 600 MG TAB PO SCH ×2 (01:42→10:26)
[2022-03-25] MEDS: Atorvastatin Calcium 20 MG TAB PER TUBE SCH (01:42)
[2022-03-25] MEDS: Metoprolol Tartrate 50 MG TAB PO SCH ×3 (01:43→17:06)
[2022-03-25 06:44] LABS: Mean Corpuscular Hemoglobin 32.8 pg (27.0-33.0); Mean Platelet Volume 12.9 fl (7.4-10.4); Platelet Count 278 10x3/uL (150-450); RBC Distribution Width 13.6 % (11.5-14.5); Red Blood Cell (RBC) Count 3.35 10x6/uL (4.32-5.72); White Blood Cell (WBC) Count 15.2 10x3/uL (3.5-10.5)
[2022-03-25 06:53] LABS: Anion Gap 13 mmol/L (10-20); BUN (Urea Nitrogen) 18 mg/dL (8.4-25.7); Calc. Creatinine Clearance 121 mL/min (70-130); Calcium 8.7 mg/dL (7.8-10.44); Carbon Dioxide 31 mmol/L (23-31); Chloride 100 mmol/L (98-107); Estimated GFR 91; Glucose 118 mg/dL (83-110); Potassium 4.6 mmol/L (3.5-5.1); Sodium 139 mmol/L (136-145)
[2022-03-25 07:55] LABS: MDiff Complete? YES
[2022-03-25 07:58] LABS: Eosinophils 3 % (0-10); Lymphocytes 10 % (21-51); Monocytes 9 % (0-10); Neutrophil 78 % (42-75)
[2022-03-25 08:01] LABS: Large Platelets SLIGHT; Macrocytosis SLIGHT = 6-15 cells (100X) (0-5/hpf); Platelet Morphology Comment Appears Adequate
[2022-03-25 09:59] VITALS: TEMP 97.8
[2022-03-25] MEDS: Tamsulosin HCl 0.4 MG CAP PO SCH (10:15)
[2022-03-25] MEDS: Digoxin 0.25 MG TAB PER TUBE SCH (10:16)
[2022-03-25] MEDS: Lansoprazole 3 MG/ML ORAL SUSPENSION PER TUBE SCH (10:26)
[2022-03-25] MEDS: Saccharomyces boulardii 250 MG CAP PO SCH (10:41)
[2022-03-25] MEDS: Scopolamine 1.5 mg/72 hour Patch TD SCH (17:07)
[2022-03-25] MEDS: HYDROcodone/Acetaminophen 5/325 mg Tablet PO PRN (17:08)
[2022-03-25 18:57] VITALS: BP 134/58
== END 2022-03-25 21:00 | DRG 853 ==
LOC: CSHERS 10:13 → CSHIMCU 12:40 → CSHTELE 03-20 17:15
PROVIDERS: ADMIT Family Medicine; ATTEND Family Medicine
PROC: 5A1935Z Respiratory Ventilation, Less than 24 Consecutive Hours (ICD-10-PCS; principal; 2022-03-09)
PROC: 0BH17EZ Insertion of Endotracheal Airway into Trachea, Via Natural or Artificial Opening (ICD-10-PCS; 2022-03-09)
PROC: 0B9F8ZX Drainage of Right Lower Lung Lobe, Via Natural or Artificial Opening Endoscopic, Diagnostic (ICD-10-PCS; 2022-03-09)
PROC: 0B9D8ZX Drainage of Right Middle Lung Lobe, Via Natural or Artificial Opening Endoscopic, Diagnostic (ICD-10-PCS; 2022-03-09)
PROC: 0B978ZX Drainage of Left Main Bronchus, Via Natural or Artificial Opening Endoscopic, Diagnostic (ICD-10-PCS; 2022-03-09)
PROC: 3E03329 Introduction of Other Anti-infective into Peripheral Vein, Percutaneous Approach (ICD-10-PCS; 2022-03-09)
PROC: 0CC Mouth and Throat, Extirpation (ICD-10-PCS; 2022-03-09)
PROC: 0DH63UZ Insertion of Feeding Device into Stomach, Percutaneous Approach (ICD-10-PCS; 2022-03-14)
DX: A41.9 Sepsis, unspecified organism (principal); I50.43 Acute on chronic combined systolic (congestive) and diastolic (congestive) heart failure; J69.0 Pneumonitis due to inhalation of food and vomit; J96.01 Acute respiratory failure with hypoxia; J90 Pleural effusion, not elsewhere classified; I69.352 Hemiplegia and hemiparesis following cerebral infarction affecting left dominant side; E44.1 Mild protein-calorie malnutrition; N39.0 Urinary tract infection, site not specified; I48.19 Other persistent atrial fibrillation; N13.30 Unspecified hydronephrosis; Z66 Do not resuscitate; N40.0 Benign prostatic hyperplasia without lower urinary tract symptoms; Z96.659 Presence of unspecified artificial knee joint; E78.5 Hyperlipidemia, unspecified; R33.9 Retention of urine, unspecified; I11.0 Hypertensive heart disease with heart failure; Z20.822 Contact with and (suspected) exposure to COVID-19; L30.9 Dermatitis, unspecified; B95.2 Enterococcus as the cause of diseases classified elsewhere; B35.6 Tinea cruris; R13.12 Dysphagia, oropharyngeal phase; E87.6 Hypokalemia; R53.81 Other malaise; I69.391 Dysphagia following cerebral infarction; Z82.49 Family history of ischemic heart disease and other diseases of the circulatory system; Z79.899 Other long term (current) drug therapy; Z68.30 Body mass index [BMI] 30.0-30.9, adult; Z74.01 Bed confinement status; Z98.890 Other specified postprocedural states
CPT/HCPCS: 32555; 36415; 36416; 36600; 71045; 74178; 80048; 80053; 81001; 82150; 82465; 82805; 82945; 83605; 83615; 83735; 83880; 84100; 84145; 84157; 84439; 84443; 84484; 85025; 85027; 87040; 87070; 87077; 87081; 87086; 87186; 87205; 87811; 89051; 93005; 93306; 94002; 94003; 94760; 96374; 96375; C9113; J0456; J0692; J0696; J1160; J1650; J2020; J2060; J2250; J2704; J3370; J3475; J3480; J3490; J7030; J7042; Q9967; U0002